=== PATIENT | female | born 1980 | race Caucasian/White ===

== ENCOUNTER → 2016-07-16 | Outpatient (CLI) | payer BC ==
[~2016-07-16] MED LIST: CHLO25TA2 PO; CPH250CIP PO; NEBI2.5T2 PO; OMEP20CA12 PO; POTA10CA43 PO; VERA120T78 PO
== END ==
LOC: LAB 08:15
PROVIDERS: ATTEND Obstetrics & Gynecology
DX: N93.8 Other specified abnormal uterine and vaginal bleeding (principal)
CPT/HCPCS: 36415; 84146; 84443; 84703